=== PATIENT | female | born 1985 | race Caucasian/White ===

== ENCOUNTER 2016-04-11 05:51 | Inpatient (IN) ==
[2016-04-11] MEDS ORDERED: CeFAZolin Pre 2,000 MG/100 ML 2,000 MG/100 ML BAG IVPB ONE (06:02)
[2016-04-11] MEDS ORDERED: Famotidine 20 MG/2 ML VIAL IVP ONE (06:02)
[2016-04-11] MEDS ORDERED: Metoclopramide 10 MG/2 ML VIAL IVP ONE (06:02)
[2016-04-11] MEDS ORDERED: Ringers Solution, Lactated 1,000 ML IVC ONE (06:02)
[2016-04-11] MEDS ORDERED: Ringers Solution, Lactated 1,000 ML IVC SCH ×2 (06:15→11:38)
[2016-04-11 06:35] LABS: Basophils % 0.2 %; Eosinophils # 0.1 K/mcL (0.0-0.6); Eosinophils % 1.2 %; Hematocrit 32.2 % (35.3-44.9); Hemoglobin 10.3 g/dL (11.5-15.4); Immature Granulocytes % 0.5 % (0-4); Immature Platelets 4.7 % (1.1-6.1); Lymphocytes # 1.9 K/mcL (0.6-4.6); Lymphocytes % 18.6 %; Mean Corpuscular Volume 87.5 fL (83.0-100.0); Mean Platelet Volume 10.5 fL (9.4-12.4); Monocytes # 0.7 K/mcL (0.0-1.3); Monocytes % 6.6 %; Neutrophils # 7.4 K/mcL (1.6-8.9); Platelet Count 280 K/mcL (140-400); Red Blood Count 3.68 M/mcL (3.82-4.97); Red Cell Distribution Width 13.2 % (11.5-14.5); Segmented Neutrophils % 72.9 %
[2016-04-11] MEDS ORDERED: *HR* Morphine Sulfate/PF 5 MG/10 ML AMPUL ONE (07:14)
[2016-04-11] MEDS ORDERED: *HR* FentaNYL (PF) 100 MCG/2 ML VIAL ONE (07:14)
[2016-04-11] MEDS ORDERED: *HR* Oxytocin 10 UNIT/ML VIAL IM ONE (07:22)
--- NOTE | 2016-04-11 07:29 | Anesthesia Evaluation PreOp ---
Date of Encounter: 04/11/16 Time of Encounter: 07:27 - Past History Planned Operation: c/section Cardiac History: Denies any Significant Hx Pulmonary History: Denies Any Significant HX MEATCUTTER History: Denies Any Significant HX Other Medical History: GERD Anesthesia History: No Prior Anesthetic Complications, Past Anesthesia (c/s epidural), Problems (no complications) : Yes Alcohol Use: none Drug use: none Medications and Allergies FLUoxetine HCl [PROzac] 20 mg PO DAILY 04/11/16 [History] Allergies No Known Allergies Allergy (Verified 04/11/16 06:19) - Meds/Allergy Pre-op Review Medications Reviewed: Yes Allergies Reviewed: Yes Beta Blockers on Current Med List: No Anesthesia Results - Labs 04/11/16 06:28 Anesthesia Exam Vital Signs/O2 Sat, Most Current Temp Pulse Resp BP 98.2 F 83 16 120/73 04/11/16 06:25 04/11/16 06:25 04/11/16 06:25 04/11/16 06:25 Height: 5'4" Weight: 85 kg NPO (# of Hours): 8 Pain Scale: 1 Pain Scale Used: Numeric (1 - 10) - HEENT Pupil (Motor): Pupils equal Mallampati: II Teeth: Normal Oral Opening: Greater than 3 - MEATCUTTER LOC: Oriented MEATCUTTER Motor: Normal RUE, Normal LUE, Normal RLE, Normal LLE, Normal Face MEATCUTTER Sensory: Normal: RUE, LUE, RLE, LLE, Face - Cardiac Rhythm: Regular Murmur: None - Pulmonary Breath Sounds: bilateral Clear Respiratory Effort: Symmetrical Anesthesia Assess/Plan ASA Score: 2 Modified Brussels Scale for Level of Consciousness: Cooperative, oriented, and tranquil Anesthetic Plan: Regional Autologous Blood: No Monitoring Plan: Standard Monitors Recovery Plan: PACU (risks discussed, questions answered, consented)
--- NOTE | 2016-04-11 07:30 | OB/GYN History & Physical ---
Date of Encounter: 04/11/16 Time of Encounter: 07:30 Assessment and Plan (1) and not yet delivered in third trimester Current visit: Yes Status: Acute (2) 39 weeks gestation of Current visit: Yes Status: Acute (3) Previous section complicating Current visit: Yes Status: Acute We will schedule patient for a repeat low transverse section History of Present Illness HPI: Ms. Braga is a 30 year old female 2 para 1 at 39-0/7 weeks who presented for repeat low transverse section. Patient has a history of a section with her first baby advise her we did not offer . Patient had an uncomplicated course. We did discuss tubal ligation with the patient she does not want one at this time. Patient was GBS negative O +. Past Med Surg Social Fam HX - Past Medical History Medical history: no medical history, migraine Psychiatric history: depression - Past Surgical History Surgical History: - Social History Smoking Status: Never smoker Alcohol use: none Drug use: none Occupational status: employed Current living situation: Home - Independent Activity Level: Independent ambulation Recent Out of Country Travel Within the Last 8 Weeks: No Exposure or Possible Exposure to Illness During Travel: No - Family History Father Living Status: Still Living Hx Family Cardiac Disorders: Yes (HTN) Hx Family Endocrine Disorder: Yes (Diabetic) - Additional Family History Additional family history: Family history noncontributory Obstetrical History - Pregnancies : 2 Para: 1 Term: 1 Livin Medications and Allergies FLUoxetine HCl [PROzac] 20 mg PO DAILY 04/11/16 [History] Allergies No Known Allergies Allergy (Verified 04/11/16 06:19) Review of System OB All systems PM: reviewed and no additional remarkable complaints except as stated Exam - Vital Signs Vital signs: Initial Vital Signs Temp Pulse Resp BP 98.2 F 83 16 120/73 04/11/16 06:25 04/11/16 06:25 04/11/16 06:25 04/11/16 06:25 - Constitutional Constitutional: well developed, well nourished, no acute distress, average body habitus - HEENT HEENT: EOMI, PERRL - Neck Neck exam: full ROM - Lungs Respiratory exam: CTAB - Cardiovascular Cardiovascular exam: RRR - Abdomen Abdomen: Present: bowel sounds normal, gravid - Cervix Dilation: 1 Effacement: 80 Station: -2 Results Result Diagrams: 04/11/16 06:28 Abnormal lab results RBC 3.68 M/mcL (3.82-4.97) L 04/11/16 06:28 Hgb 10.3 g/dL (11.5-15.4) L 04/11/16 06:28 Hct 32.2 % (35.3-44.9) L 04/11/16 06:28 All other labs normal.
--- NOTE | 2016-04-11 07:49 | Anesthesia Procedures ---
Date of Encounter: 04/11/16 Time of Encounter: 08:07 Procedures: Anesthesia - Epidural/Spinal Patient examined: Yes OB Eval: Gestational age: 39 OB Eval: : 2 OB Eval: Hx Para: 1 OB Eval: Dilated at (cm): 3 OB Eval: Contractions: Non-stressed pattern Consent Obtained: Yes Supplemental Oxygen: None/Room Air Site Prep: Aseptic Technique, Sterile prep and drape, Povidone-Iodine 1% Patient position: upright Local Anesthetic: Lidocaine 1% Amount of Local Anesthetic used: 3 Interspace Used: L2-L3 Loss of Resistance (BETTINA): No Blood: No CSF: Yes Paresthesia: No Spinal Needle Gauge: 25 Spinal Dose: marcaine 12mg, duramorph .25, fent 7 mcg Procedure: aseptic tech, tolerated well
[2016-04-11] MEDS ORDERED: EPHEDrine 50 MG/ML VIAL ONE (08:04)
[2016-04-11] MEDS ORDERED: Ondansetron 4 MG/2 ML VIAL IVP PRN ×2 (08:08→11:38)
[2016-04-11] MEDS ORDERED: *HR* HYDROmorphone (PF) 1 MG/ML SYRINGE IVP PRN ×2 (08:08→11:38)
--- NOTE | 2016-04-11 09:05 | OB/GYN Procedure Note ---
Section - Date of procedure: 04/11/16 Preop diagnosis: other (Intrauterine at 39-0/7 weeks, previous section 1) Post-op diagnosis: same Procedure: repeat low transverse Surgeon: Francisco Elizabeth Estimated blood loss (cc): 700 Image Processing Engineer: Tessy Calhoun ([email or web address]) Anesthesiologist: Haider Bradford Cutter Brake Lining: Lauir Esquivel Anesthesia Type: Spinal section complications: none Disposition: L&D Recovery Room - (s) Infant A Delivery Date: 04/11/16 Infant Delivery Time: 08:23 Presentation: vertex Position: DOC Route of delivery: other ( section) Gender: Female Viability: Viable Pounds: 6 Ounces: 8 Gram Weight: 2.945 kg at 1 minute: 8 at 5 minutes: 8 Shoulder Dystocia: not encountered Specimens collected: cord blood Placenta: complete extraction Cord: nuchal cord, 3 umbilical vessels, nuchal reduced - Narrative Narrative: Patient is a 30-year-old 2 para 1 at 39-0/7 weeks who presented for repeat section. Patient has a history of previous section advised her we did not offer . 3 was unremarkable. Procedure: Patient was taken operating room where spinal anesthesia was found be adequate. She was placed in the dorsal supine position with leftward tilt prepped and draped in usual fashion. Timeout was then obtained. Pfannenstiel incision was made with a scalpel and carried down through the underlying tissue until fascia was identified. Fascia was nicked the midline extended laterally with the Sanchez scissors. The superior and inferior edges of the fascia grasped tented up and dissected off the rectus muscles. Rectus muscles were in midline parietal peritoneum was identified tented up and entered sharply. This is extended superiorly and inferiorly with Metzenbaums months visit. Bladder blade was inserted disc even peritoneum was identified tented up and entered sharply. This was extended laterally the bladder flap was created digitally. The lower uterine segment was noted to be extremely thin incision was made a little bit higher. Once we entered and medial cavity the incision was extended laterally with digital manipulation. Membranes are ruptured clear fluid noted. 's head was delivered there was a nuchal cord 1 loose and reduced no meconium. The was fully delivered the cord was clamped and cut and the was handed off to waiting pediatric team. Cord blood was collected placenta was manually removed uterus was exteriorized and cleared of all clots and debris. The lower uterine segment was then closed using 0 Vicryl in a running locking stitch particular closure. The low uterine segment Tearing through [id number] suture was then used to get hemostasis under control and to close the defect. Ovaries tubes were normal she did have some small fibroids on the serosal surface. Uterus was then returned to the abdomen gutters were cleaned of all clots and debris and copiously irrigated with water. No active bleeding seen. The fascia was then closed using a #1 stratafix in a running stitch good hemostasis was noted the skin was then closed using a 4-0 Vicryl in a subcuticular manner. All needles lap sponge counts were correct 3 she tolerated the procedure well. She did receive preoperative antibiotics.
[2016-04-11] MEDS ORDERED: Oxytocin 20 units/ LR 1000 mL 20 UNIT/1,000 ML BAG IVC ONE (11:37)
[2016-04-11] MEDS ORDERED: Oxytocin 20 units/ LR 1000 mL 20 UNIT/1,000 ML BAG IV SCH (11:38)
[2016-04-11] MEDS ORDERED: *HR* OxyCODONE/APAP 10/325 TABLET PO PRN (11:38)
[2016-04-11] MEDS ORDERED: Naloxone 0.4 MG/ML INJ IVP PRN (11:38)
[2016-04-11] MEDS ORDERED: Sennosides 8.6 MG TABLET PO PRN (11:38)
[2016-04-11] MEDS ORDERED: Metoclopramide 10 MG/2 ML VIAL IVP PRN (11:38)
[2016-04-11] MEDS ORDERED: Simethicone 80 MG TAB.CHEW PO PRN (11:38)
[2016-04-11] MEDS: Ibuprofen 600 MG TABLET PO PRN (12:15)
--- NOTE | 2016-04-11 12:58 | Anesthesia Evaluation Post Op ---
Date of Encounter: 04/11/16 Time of Encounter: 12:57 - Vital Signs Vital Signs: Vital Signs/O2 Sat, Most Current Temp Pulse Resp BP Pulse Ox 98.3 F 94 16 106/65 98 04/11/16 11:30 04/11/16 11:30 04/11/16 11:30 04/11/16 11:30 04/11/16 11:30 - Lungs Lungs: Clear Ascult./Percussion - Airway Airway: Non-obstructed - Cardiovascular Regular Rate - Mental Status Mental Status: Alert & Oriented, Answers Appropriately - Pain Pain Scale: 3 Pain Scale used: Numeric (1 - 10) - Nausea Vomiting Nausea Vomiting: Not Present - Hydration Hydration: Tolerates oral liquids - Discharge PostOp Status: Transfer Patient to floor (fully awake, VSS)
[2016-04-11] MEDS: *HR* OxyCODONE/APAP 5/325 TABLET PO PRN (20:22)
[2016-04-12] MEDS: Ibuprofen 600 MG TABLET PO PRN ×2 (01:18→22:24)
[2016-04-12 04:28] LABS: Basophils # 0.1 K/mcL (0.0-0.2); Basophils % 0.5 %; Eosinophils # 0.1 K/mcL (0.0-0.6); Eosinophils % 0.9 %; Hematocrit 24.7 % (35.3-44.9); Immature Granulocytes % 0.5 % (0-4); Lymphocytes # 1.8 K/mcL (0.6-4.6); Lymphocytes % 16.5 %; Mean Corpuscular HGB Conc 31.6 g/dL (31.6-35.5); Mean Corpuscular Hemoglobin 28.1 pg (28.0-33.3); Mean Corpuscular Volume 88.8 fL (83.0-100.0); Mean Platelet Volume 10.4 fL (9.4-12.4); Monocytes # 0.7 K/mcL (0.0-1.3); Monocytes % 6.3 %; Neutrophils # 8.2 K/mcL (1.6-8.9); Platelet Count 208 K/mcL (140-400); Red Blood Count 2.78 M/mcL (3.82-4.97); Red Cell Distribution Width 13.3 % (11.5-14.5); Segmented Neutrophils % 75.3 %
[2016-04-12 04:41] LABS: Hemoglobin 7.8 g/dL (11.5-15.4)
--- NOTE | 2016-04-12 08:05 | OB/GYN Progress Note ---
Date of Encounter: 04/12/16 Time of Encounter: 08:03 - Assessment and Plan (1) Status post repeat low transverse section Current Visit: Yes Status: Acute Continue routine postop/ care possible discharge home tomorrow (2) Breast feeding status of mother Current Visit: Yes Status: Acute support prn Subjective - Subjective Principal diagnosis: status post repeat c/s ppd 1 Interval history: Patient in bed, doing well. Patient reports pain is well controlled. Patient denies any dizziness or feeling lightheaded with movement. Patient is breast feeding female infant. Patient reports: appetite normal, voiding normally, pain well controlled, ambulating normally : doing well, nursing well Objective - Vital Signs Latest vital signs: Vital Signs Temp Pulse Resp BP Pulse Ox 04/12/16 03:51 16 04/12/16 03:45 97.4 F L 78 16 117/77 98 04/11/16 23:30 98.0 F 93 16 123/78 97 04/11/16 19:45 98.2 F 95 16 104/69 98 04/11/16 16:23 16 04/11/16 16:10 98.0 F 90 16 120/84 99 04/11/16 14:30 98.0 F 90 12 114/72 100 04/11/16 13:30 98.2 F 98 12 117/73 99 04/11/16 12:00 98.0 F 88 16 117/75 99 04/11/16 11:30 98.3 F 94 16 106/65 98 Intake and Output 04/11/16 04/12/16 04/12/16 23:59 07:59 15:59 Intake Total 620 / 620 0 / 0 Output Total 450 / 450 1025 / 1025 Balance 170 / 170 -1025 / -1025 Intake: Oral 620 / 620 0 / 0 Output: Catheter 450 / 450 1025 / 1025 Other: Weight 79.2 kg Patient Weight 04/12/16 23:59 Weight 79.2 kg - Exam Lungs: bilateral: normal Chest: Normal S1, Normal S2 Extremities: Present: normal Abdomen: Present: normal appearance, soft Incision: Present: normal, dry, intact, dressed Uterus: Present: normal, firm Fundal Height: 2 (U/2) - Labs Labs: Laboratory Results - last 24 hr 04/12/16 04:16 WBC 10.9 RBC 2.78 L Hgb 7.8 L D Hct 24.7 L MCV 88.8 MCH 28.1 MCHC 31.6 RDW 13.3 Plt Count 208 MPV 10.4 Immature Gran % 0.5 Seg Neutrophils % 75.3 Lymphocytes % 16.5 Monocytes % 6.3 Eosinophils % 0.9 Basophils % 0.5 Neutrophils # 8.2 Lymphocytes # 1.8 Monocytes # 0.7 Eosinophils # 0.1 Basophils # 0.1
[2016-04-12] MEDS: *HR* OxyCODONE/APAP 5/325 TABLET PO PRN (09:17)
[2016-04-12] MEDS: FLUoxetine 20 MG CAPSULE PO SCH (09:17)
[2016-04-12] MEDS: Prenatal Vit/FA 1 EACH TABLET PO SCH (09:18)
[2016-04-13 05:44] LABS: Basophils % 0.2 %; Eosinophils # 0.2 K/mcL (0.0-0.6); Eosinophils % 1.6 %; Hematocrit 24.9 % (35.3-44.9); Immature Granulocytes % 0.9 % (0-4); Lymphocytes # 1.9 K/mcL (0.6-4.6); Lymphocytes % 18.1 %; Mean Corpuscular HGB Conc 32.1 g/dL (31.6-35.5); Mean Corpuscular Hemoglobin 28.8 pg (28.0-33.3); Mean Corpuscular Volume 89.6 fL (83.0-100.0); Mean Platelet Volume 10.6 fL (9.4-12.4); Monocytes # 0.7 K/mcL (0.0-1.3); Monocytes % 6.6 %; Neutrophils # 7.6 K/mcL (1.6-8.9); Platelet Count 233 K/mcL (140-400); Red Blood Count 2.78 M/mcL (3.82-4.97); Red Cell Distribution Width 13.2 % (11.5-14.5); Segmented Neutrophils % 72.6 %
--- NOTE | 2016-04-13 07:40 | Discharge Summary ---
Date of Encounter: 04/13/16 Time of Encounter: 07:37 - Discharge Diagnosis (1) anemia Priority: Secondary Status: Acute Comments: hgb stable at 8. Pt denies s/sx anemia. Home on iron. (2) Encounter for care or examination of lactating mother Priority: Secondary Status: Acute (3) Status post repeat low transverse section Priority: Primary Status: Acute Comments: Pt meeting post-op milestones. - Discharge Medications Prescriptions: OxyCODONE/APAP 5/325 [Percocet 5/325 MG] 1 each PO Q4HR PRN #30 tablet PRN Reason: Moderate pain 4-6 Ibuprofen [Motrin] 600 mg PO Q6HR PRN #60 tablet PRN Reason: Cramping Docusate [Colace] 100 mg PO BID #60 capsule Ferrous Sulfate 325 mg PO BID #60 tablet Home Medications: FLUoxetine HCl [Prozac] 20 mg PO DAILY 04/11/16 [History] Docusate [Colace] 100 mg PO BID #60 capsule 04/13/16 [Rx] Ferrous Sulfate 325 mg PO BID #60 tablet 04/13/16 [Rx] Ibuprofen [Motrin] 600 mg PO Q6HR PRN #60 tablet 04/13/16 [Rx] OxyCODONE/APAP 5/325 [Percocet 5/325 MG] 1 each PO Q4HR PRN #30 tablet 04/13/16 [Rx] Allergies/Adverse Reactions: Allergies No Known Allergies Allergy (Verified 04/11/16 06:19) Data Procedures and tests throughout hospitalization: Laboratory Tests 04/11/16 04/12/16 04/13/16 06:28 04:16 04:48 WBC 10.2 10.9 10.5 RBC 3.68 L 2.78 L 2.78 L Hgb 10.3 L 7.8 L D 8.0 L Hct 32.2 L 24.7 L 24.9 L MCV 87.5 88.8 89.6 MCH 28.0 28.1 28.8 MCHC 32.0 31.6 32.1 RDW 13.2 13.3 13.2 Plt Count 280 208 233 MPV 10.5 10.4 10.6 Immature Gran % 0.5 0.5 0.9 Seg Neutrophils % 72.9 75.3 72.6 Lymphocytes % 18.6 16.5 18.1 Monocytes % 6.6 6.3 6.6 Eosinophils % 1.2 0.9 1.6 Basophils % 0.2 0.5 0.2 Neutrophils # 7.4 8.2 7.6 Lymphocytes # 1.9 1.8 1.9 Monocytes # 0.7 0.7 0.7 Eosinophils # 0.1 0.1 0.2 Basophils # 0.0 0.1 0.0 Immature Plt Fraction 4.7 Labs on day of discharge: Labs from last 24 hours 04/13/16 04:48 WBC 10.5 RBC 2.78 L Hgb 8.0 L Hct 24.9 L MCV 89.6 MCH 28.8 MCHC 32.1 RDW 13.2 Plt Count 233 MPV 10.6 Immature Gran % 0.9 Seg Neutrophils % 72.6 Lymphocytes % 18.1 Monocytes % 6.6 Eosinophils % 1.6 Basophils % 0.2 Neutrophils # 7.6 Lymphocytes # 1.9 Monocytes # 0.7 Eosinophils # 0.2 Basophils # 0.0 Date of admission: 04/11/16 05:51 Primary care physician: Kelly Dahl, Discharging clinician: Raquel Freire Anticipated date of discharge: 04/13/16 - Patient Status Disposition: Home, Self-Care Condition: Good Functional capacity at discharge: independent ambulation Overall status at discharge: patient is progressing back to baseline - Discharge Instructions Follow Up With: Kelly Dahl CNP [Primary Care Provider] - Francisco Elizabeth DO [Partnered Physician] - - Diet and Activity Activity: increase activity as tolerated Diet: advance to your usual diet Hospital Course Reason for admission: section Delivery: section Episiotomy: none Laceration: none Other procedures: none complications: none Discharge diagnosis: IUP at term delivered [place] baby: female Hospital course: - Date of procedure: 04/11/16 Preop diagnosis: other (Intrauterine at 39-0/7 weeks, previous section 1) Post-op diagnosis: same Procedure: repeat low transverse Surgeon: Francisco Elizabeth Estimated blood loss (cc): 700 Paleologist: Tessy Calhoun ([email or web address]) Anesthesiologist: Haider Bradford Asparagus Buncher: Lauri Esquivel Anesthesia Type: Spinal section complications: none Disposition: L&D Recovery Room - (s) Infant A Delivery Date: 04/11/16 Infant Delivery Time: 08:23 Presentation: vertex Position: DOC Route of delivery: other ( section) Gender: Female Viability: Viable Pounds: 6 Ounces: 8 Gram Weight: 2.945 kg at 1 minute: 8 at 5 minutes: 8 Shoulder Dystocia: not encountered Specimens collected: cord blood Placenta: complete extraction Cord: nuchal cord, 3 umbilical vessels, nuchal reduced course complicated by anemia. Discharge home POD#2 with iron. Baby in nursery, . Time Attestation: Total time spent providing and/or coordinating discharge services: Time Spent: Less than 30 minutes - VTE Documentation of Mechanical Device: Intermittent pneumatic compression device Exam - Constitutional Vitals: Temp Pulse Resp BP Pulse Ox 98.8 F 95 16 127/74 97 04/12/16 19:30 04/12/16 19:30 04/12/16 22:19 04/12/16 19:30 04/12/16 19:30 General appearance IM: A&O X 3, pleasant, no acute distress - Respiratory Respiratory exam: Present: CTAB - Cardiovascular Cardiovascular exam IM: Present: RRR, +S1, +S2 - GI/Abdominal GI/Abdominal exam IM: soft, no peritoneal signs Incision: dry, intact Additional comments: steri strips in place, no s/sx infection noted - Rectal Rectal exam: deferred - Uterine Tone: Firm Uterus Position: 1 Finger Below Umbilicus - Extremities Exam Extremities exam IM: Present: normal inspection - Neurological Exam Neurological exam: normal gait, oriented X3 - Psychiatric Additional comments: reports good mood
[2016-04-13 07:49] VITALS: BP 117/76
[2016-04-13] MEDS: Prenatal Vit/FA 1 EACH TABLET PO SCH (09:20)
[2016-04-13] MEDS: Ibuprofen 600 MG TABLET PO PRN (09:20)
[2016-04-13] MEDS: FLUoxetine 20 MG CAPSULE PO SCH (09:21)
== END 2016-04-13 18:02 | disposition home or self-care (01) | DRG 766 ==
LOC: 1NENULAB 05:51 → 1NENUOBS 11:38
PROVIDERS: ADMIT Obstetrics & Gynecology; ATTEND Obstetrics & Gynecology